=== PATIENT | female | born 1965 | race Caucasian/White ===

== ENCOUNTER 2017-09-04 13:26 | Emergency (ER) | payer BC, OTHER ==
[~2017-09-04] VITALS: Ht 162.6 cm; Wt 122.5 kg
[2017-09-04 14:44] LABS: Basophils # (auto) 0.1 uL; Basophils % (auto) 1.3 % (0.0-2.0); Eosinophils # (auto) 0.4 uL; Hematocrit 39.9 % (36.0-46.0); Hemoglobin 12.9 g/dL (12.2-16.2); Lymphocytes # (auto) 1.4 uL; Mean Corpuscular Hgb Conc. 32.3 g/dL (32.0-36.0); Mean Corpuscular Volume 83.6 fL (80.0-100.0); Monocytes # (auto) 0.3 uL; Monocytes % (auto) 3.9 % (0.0-12.0); Neutrophils # (auto) 6.6 uL; Neutrophils % (auto) 74.8 % (37.0-80.0); Platelet Count (auto) 334 10^3/uL (140-450); Red Blood Cells 4.77 10^6/uL (4.0-5.20); Red Cell Distribution Width 14.3 % (11.8-14.3); White Blood Cell 8.8 10^3/uL (4.4-10.8)
[2017-09-04 15:03] LABS: Chloride 106 mmol/L (98-107); Potassium 3.8 mmol/L (3.5-5.1); Sodium 138 mmol/L (136-145)
[2017-09-04 15:04] LABS: Alanine Aminotransferase 66 U/L (13-56); Albumin 3.5 g/dL (3.4-5.0); Alkaline Phosphatase 97 U/L (45-117); Anion Gap 9 (5-15); Aspartate Aminotransferase 45 U/L (15-37); BUN/Creatinine Ratio 12.3; Bilirubin, Total 0.4 mg/dL (0.2-1.0); Blood Urea Nitrogen 10 mg/dL (7-18); Calcium 8.6 mg/dL (8.5-10.1); Carbon Dioxide 23 mmol/L (21-32); GFR African American 96 mL/min; GFR Non-African American 80 mL/min; Glucose 104 mg/dL (74-106)
[2017-09-04] MEDS: ASPirin 81 mg TAB PO ONE (19:28)
[2017-09-04] MEDS: SODIUM CHLORIDE 0.9% 1,000 ML IVB ONE (19:28)
[2017-09-04] MEDS: LORazepam 0.5 MG TAB PO ONE (19:28)
[2017-09-04 19:29] VITALS: BP 175/95
[2017-09-04] MEDS: cloNIDine HCL 0.1 MG TAB PO ONE (19:41)
== END 2017-09-04 20:15 | disposition home or self-care (01) ==
LOC: ER 13:26 → EDBD 13:26 → ER 20:14
DX: R07.89 Other chest pain (principal); J40 Bronchitis, not specified as acute or chronic; Z88.0 Allergy status to penicillin
CPT/HCPCS: 36415; 71046; 80053; 84443; 84484; 85025; 93005